=== PATIENT | male | born 1980 | race Hispanic/Latino ===

== ENCOUNTER 2018-04-08 12:29 | Observation (INO) | payer BC, OTHER ==
[2018-04-08 13:30] LABS: Absolute Lymphocytes (CBC) 2.1 K/uL (0.7-4.9); Absolute Monocytes 0.4 K/uL (0.1-1.3); Absolute Neutrophil 3.7 K/uL (1.8-8.0); Basophils % 0.5 % (0-1.3); Eosinophils % 1.2 % (0-4.4); Hematocrit 46.4 % (39.6-49.0); MPV 7.8 fL (7.6-11.3); Monocytes % 7.1 % (3.3-12.3); RBC Red Blood Cell Count 5.22 M/uL (4.33-5.43)
--- NOTE | 2018-04-08 13:54 | RAD REPORT ---
EXAM DESCRIPTION: RAD - Chest Single View - 04/08/2018 1:48 pm CLINICAL HISTORY: CHEST PAIN Chest pain. COMPARISON: THORAX WO CONTRAST dated 06/15/2010 FINDINGS: Portable technique limits examination quality. The lungs are grossly clear. The heart is normal in size. No displaced fractures. IMPRESSION: No acute intrathoracic process suspected.
[2018-04-08 14:09] LABS: ALT/SGPT 29 U/L (12-78); AST/SGOT 15 U/L (15-37); Albumin 3.8 g/dL (3.4-5.0); Alkaline Phosphatase 82 U/L (45-117); BUN Blood Urea Nitrogen 14 mg/dL (7-18); Bicarbonate 28 mmol/L (21-32); Bilirubin Direct < 0.1 mg/dL (0-0.2); Bilirubin Total 0.4 mg/dL (0.2-1.0); Glucose Level 125 mg/dL (74-106); NT PRO-BNP 52 pg/mL (<125); Potassium 3.6 mmol/L (3.5-5.1); Sodium Level 139 mmol/L (136-145); Troponin (Emerg Dept Use Only) < 0.02 ng/mL (0.0-0.045)
--- NOTE | 2018-04-08 14:35 | ER ---
Nurse's Notes [facility] Name: Hardy Venegas Age: 37 yrs Sex: Male : 1980 Arrival Date: 04/08/2018 Time: 12:35 Bed 6 Private MD: Diagnosis: Chest pain, unspecified Presentation: 04/08 12:43 Presenting complaint: Patient states: Sharp left sided chest pain x 4 days. Pain is hb worse with movement. Denies SOB/nausea. Transition of care: patient was not received from another setting of care. Onset of symptoms was April 05, 2018. Risk Assessment: Do you want to hurt yourself or someone else? Patient reports no desire to harm self or others. Initial Sepsis Screen: Does the patient meet any 2 criteria? No. Patient's initial sepsis screen is negative. Does the patient have a suspected source of infection? No. Patient's initial sepsis screen is negative. Care prior to arrival: None. 12:43 Method Of Arrival: Ambulatory hb 12:43 Acuity: JEREMÍAS 3 hb Historical: - Allergies: 12:45 No Known Allergies; hb - Home Meds: 12:45 None [Active]; hb - PMHx: 12:45 None; hb - PSHx: 12:45 None; hb - Immunization history:: Adult Immunizations up to date. - Social history:: Smoking status: Patient uses tobacco products, smokes one-half pack cigarettes per day. - Ebola Screening: : No symptoms or risks identified at this time. - Family history:: not pertinent. - Hospitalizations: : No recent hospitalization is reported. Screenin:00 Abuse screen: Denies threats or abuse. Nutritional screening: No deficits noted. aa5 Tuberculosis screening: No symptoms or risk factors identified. Fall Risk None identified. Assessment: 13:00 General: Appears comfortable, Behavior is calm, cooperative. Pain: Complains of pain in aa5 anterior aspect of left upper chest and left breast Pain does not radiate. Pain currently is 5 out of 10 on a pain scale. Quality of pain is described as sharp, Pain began 4 days ago Is continuous. Neuro: Level of Consciousness is awake, alert, obeys commands, Oriented to person, place, time, situation. Cardiovascular: Heart tones S1 S2 present Rhythm is regular. Respiratory: Airway is patent Respiratory effort is even, unlabored, Respiratory pattern is regular, symmetrical, Breath sounds are clear bilaterally. GI: No signs and/or symptoms were reported involving the gastrointestinal system. : No signs and/or symptoms were reported regarding the genitourinary system. EENT: No signs and/or symptoms were reported regarding the EENT system. Derm: Skin is pink, warm \T\ dry. Musculoskeletal: Range of motion: intact in all extremities. 13:20 Reassessment: Patient and/or family updated on plan of care and expected duration. Pain aa5 level reassessed. Patient is alert, oriented x 3, equal unlabored respirations, skin warm/dry/pink. Pt notified of wait time for results. . 15:00 Reassessment: Patient is alert, oriented x 3, equal unlabored respirations, skin aa5 warm/dry/pink. Pt sitting up in bed. Awaiting room assignment . 16:50 Reassessment: Patient is alert, oriented x 3, equal unlabored respirations, skin aa5 warm/dry/pink. Vital Signs: 12:44 BP 152 / 88; Pulse 89; Resp 18; Temp 98.2; Pulse Ox 100% on R/A; Pain 5/10; hb 15:20 BP 123 / 88; Pulse 69; Resp 16 S; Temp 98.0(TE); Pulse Ox 97% on R/A; Pain 3/10; aa5 ED Course: 12:35 Patient arrived in ED. mr 12:44 Triage completed. hb 12:44 Arm band placed on. hb 12:45 EKG completed in triage. Results shown to MD. hb 12:47 Orlin Cruz MD is Attending Physician. rn 12:59 Arabella Burton, VALERIE is Primary Nurse. aa5 13:00 Patient has correct armband on for positive identification. Placed in gown. Bed in low aa5 position. Call light in reach. Side rails up X2. 13:00 assistant unit forester on. Pulse ox on. NIBP on. aa5 13:13 Missed attempt(s): 20 gauge in right upper arm. Bleeding controlled, band aid applied, aa5 catheter tip intact. 13:15 Initial lab(s) drawn, by me, sent to lab. Inserted saline lock: 20 gauge in left aa5 antecubital area, using aseptic technique. Blood collected. 13:32 No provider procedures requiring assistance completed. Patient maintains SpO2 aa5 saturation greater than 95% on room air. 13:38 X-ray completed. Portable x-ray completed in exam room. Patient tolerated procedure sw well. 13:48 XRAY Chest (1 view) In Process Unspecified. EDMS 14:34 Hardeep Tirado MD is Hospitalizing Provider. rn 16:50 Patient admitted, IV remains in place. aa5 Administered Medications: No medications were administered Outcome: 14:34 Decision to Hospitalize by Provider. rn 16:50 Admitted to Tele accompanied by tech, via wheelchair, with chart, Report called to aa5 VALERIE Hoyos 16:50 Condition: stable 16:50 Instructed on the need for admit, Demonstrated understanding of instructions. 17:04 Patient left the ED. aa5 Signatures: Dispatcher [employer] EDMN Juan Joleen CruzOrlin MD MD rn Calderon, Audri, RN RN aa5 Dhara Powell Heather, RN RN Corrections: (The following items were deleted from the chart) 13:35 13:00 Pain: Complains of pain in anterior aspect of left upper chest and left breast aa5 Pain does not radiate. Pain currently is 5 out of 10 on a pain scale. Quality of pain is described as sharp, Pain began Is continuous, aa5 17:34 16:20 BP 123 / 88; Pulse 69bpm; Resp 16bpm; Spontaneous; Pulse Ox 97% RA; Temp 98.0F aa5 Temporal; Pain 3/10; aa5
--- NOTE | 2018-04-08 14:35 | EDPHYS ---
Physician Documentation [facility] Name: Hardy Venegas Age: 37 yrs Sex: Male : 1980 Arrival Date: 04/08/2018 Time: 12:35 Bed 6 Private MD: ED Physician Orlin Cruz HPI: 04/08 14:31 This 37 yrs old Male presents to ER via Ambulatory with complaints of Chest rn Pain. 14:31 The patient or guardian reports chest pain that is located primarily in the anterior rn chest wall, left. The pain does not radiate. Associated signs and symptoms: The patient has no apparent associated signs or symptoms, Pertinent negatives: shortness of breath, syncope, vomiting. The chest pain is described as a heaviness, sharp. Duration: The patient or guardian reports multiple episodes, that are intermittent. Modifying factors: The symptoms are alleviated by nothing. the symptoms are aggravated by nothing. Severity of pain: At its worst the pain was mild in the emergency department the pain is unchanged. The patient has not experienced similar symptoms in the past. The patient has not recently seen a physician. Historical: - Allergies: 12:45 No Known Allergies; hb - Home Meds: 12:45 None [Active]; hb - PMHx: 12:45 None; hb - PSHx: 12:45 None; hb - Immunization history:: Adult Immunizations up to date. - Social history:: Smoking status: Patient uses tobacco products, smokes one-half pack cigarettes per day. - Ebola Screening: : No symptoms or risks identified at this time. - Family history:: not pertinent. - Hospitalizations: : No recent hospitalization is reported. ROS: 14:31 Constitutional: Negative for fever, chills, and weight loss, Eyes: Negative for injury, rn pain, redness, and discharge, Neck: Negative for injury, pain, and swelling, Cardiovascular: Negative for palpitations, and edema, Respiratory: Negative for shortness of breath, cough, wheezing, and pleuritic chest pain, Abdomen/GI: Negative for abdominal pain, nausea, vomiting, diarrhea, and constipation, MS/Extremity: Negative for injury and deformity, Skin: Negative for injury, rash, and discoloration, Neuro: Negative for headache, weakness, numbness, tingling, and seizure. Exam: 14:31 Constitutional: This is a well developed, well nourished patient who is awake, alert, rn and in no acute distress. Head/Face: Normocephalic, atraumatic. Eyes: Pupils equal round and reactive to light, extra-ocular motions intact. Lids and lashes normal. Conjunctiva and sclera are non-icteric and not injected. Cornea within normal limits. Periorbital areas with no swelling, redness, or edema. Cardiovascular: Regular rate and rhythm. No pulse deficits. Respiratory: Lungs have equal breath sounds bilaterally, clear to auscultation. No increased work of breathing, no retractions or nasal flaring. Abdomen/GI: soft, non-tender Skin: Warm, dry with normal turgor. Normal color with no rashes, no lesions, and no evidence of cellulitis. MS/ Extremity: Pulses equal, no cyanosis. Neurovascular intact. Full, normal range of motion. Equal circumference. Neuro: Awake and alert, GCS 15, oriented to person, place, time, and situation. Cranial nerves II-XII grossly intact. Motor strength 5/5 in all extremities. Sensory grossly intact. Cerebellar exam normal. Normal gait. 14:31 ECG was reviewed by the Attending Physician. rn Vital Signs: 12:44 BP 152 / 88; Pulse 89; Resp 18; Temp 98.2; Pulse Ox 100% on R/A; Pain 5/10; hb 15:20 BP 123 / 88; Pulse 69; Resp 16 S; Temp 98.0(TE); Pulse Ox 97% on R/A; Pain 3/10; aa5 MDM: 12:47 Patient medically screened. rn 14:31 Differential diagnosis: acute myocardial infarction, acute pericarditis, coronary rn artery disease chest wall pain, costochondritis, esophagitis, gastritis, gastroesophageal reflux disease (GERD), pleurisy, pneumothorax, stable angina. Data reviewed: vital signs, nurses notes, lab test result(s), EKG, radiologic studies, plain films, and as a result, I will admit patient. Counseling: I had a detailed discussion with the patient and/or guardian regarding: the historical points, exam findings, and any diagnostic results supporting the discharge/admit diagnosis, lab results, radiology results, the need for further work-up and treatment in the hospital. Response to treatment: the patient's symptoms have mildly improved after treatment, and as a result, I will admit patient. Admission orders: after a detailed discussion of the patient's condition and case, the admit orders are written by me. ED course: Pt admitted to Dr. Tirado given t wave inversions inferolateral leads, trop neg, sleeping.. 04/08 12:53 Order name: Basic Metabolic Panel; Complete Time: 14:11 rn 04/08 12:53 Order name: CBC with Diff; Complete Time: 14:05 rn 04/08 12:53 Order name: LFT's; Complete Time: 14: rn 04/08 12:53 Order name: NT PRO-BNP; Complete Time: 14: rn 04/08 12:53 Order name: Troponin (emerg Dept Use Only); Complete Time: 14: rn 04/08 12:53 Order name: D-Dimer; Complete Time: 14:05 rn 04/08 12:53 Order name: XRAY Chest (1 view); Complete Time: 14:06 rn 04/08 12:53 Order name: EKG; Complete Time: 12:54 rn 04/08 12:53 Order name: Cardiac monitoring; Complete Time: 13:19 rn 04/08 12:53 Order name: EKG - Nurse/Tech; Complete Time: 13:19 rn 04/08 12:53 Order name: IV Saline Lock; Complete Time: 13:19 rn 04/08 12:53 Order name: Labs collected and sent; Complete Time: 13:19 rn 04/08 12:53 Order name: O2 Per Protocol; Complete Time: 13:19 rn 04/08 12:53 Order name: O2 Sat Monitoring; Complete Time: 13:19 rn 04/08 13:31 Order name: Labs - recollect needed; Complete Time: 13:40 eb EC:31 Rate is 84 beats/min. Rhythm is regular. QRS [place] is Normal. SD interval is normal. QRS rn interval is normal. QT interval is normal. No Q waves. T waves are Inverted. No ST changes noted. Clinical impression: NSR w/ Non-specific ST/T Changes. Interpreted by me. Administered Medications: No medications were administered Disposition: 04/08/18 14:34 Hospitalization ordered by Hardeep Tirado for Observation. Preliminary diagnosis is Chest pain, unspecified. - Bed requested for Telemetry/MedSurg (observation). - Status is Observation. aa5 - Condition is Stable. - Problem is new. - Symptoms have improved. UTI on Admission? No Signatures: Dispatcher [employer] EDMS Orlin Cruz MD MD rn Calderon, Audri RN RN aa5 Heather Hawkins RN RN Antionette Marie Corrections: (The following items were deleted from the chart) 15:28 14:34 Hospitalization Ordered by Hardeep Tirado MD for Observation. Preliminary diagnosis eb is Chest pain, unspecified. Bed requested for Telemetry/MedSurg (observation). Status is Observation. Condition is Stable. Problem is new. Symptoms have improved. UTI on Admission? No. rn 17:04 15:28 04/08/2018 14:34 Hospitalization Ordered by Hardeep Tirado MD for Observation. aa5 Preliminary diagnosis is Chest pain, unspecified. Bed requested for Telemetry/MedSurg (observation). Status is Observation. Condition is Stable. Problem is new. Symptoms have improved. UTI on Admission? No. eb
--- NOTE | 2018-04-08 16:53 | P.HP ---
Certification for Inpatient Patient admitted to: Observation With expected LOS: <2 Midnights Practitioner: I am a practitioner with admitting privileges, knowledge of patient current condition, hospital course, and medical plan of care. Services: Services provided to patient in accordance with Admission requirements found in Title 42 Section 412.3 of the Code of Federal Regulations Patient History Date of Service: 04/08/18 Primary Care Provider: None Reason for admission: Chest pain History of Present Illness: This is a 37-year-old male with no past medical history, current smoker admitted for chest pain. Patient endorses a left-sided sharp chest pain for the past 3-4 days that has been constant. It is worse with neck movement. Denies any alleviating factors. Denies any radiation, nausea, vomiting, fevers , chills, shortness of breath, vision changes, speech changes, GI, or complaints. He denies any past medical history, denies taking any medications at home, denies any surgical history. He is a current smoker. He smokes about half pack per day for the past 20 years. He is also a former drug user, denies any drug usage for 20 years. He also denies any significant family history. In the ER, EKG with inferior lateral T-wave inversions, troponins negative x1. Creatinine elevated at 1.37. Other lab work unremarkable. At the time of my exam, patient was alert oriented x3, hemodynamically stable and in no acute distress. Allergies No Known Allergies Allergy (Unverified 04/08/18 16:47) Home Medications: NK [No Home Meds] 04/08/18 - Past Medical/Surgical History Has patient received pneumonia vaccine in the past: No Diabetic: No Past Medical History: Patient denies medical history Past Surgical History: Patient denies surgical history - Family History Family History: Reviewed- Non-Contributory - Family History Mother -: Cancer Notes: Ovarian Review of Systems 10-point ROS is otherwise unremarkable Physical Examination - Physical Exam General: Alert, In no apparent distress, Oriented x3 HEENT: Atraumatic, PERRLA, Mucous membr. moist/pink, EOMI, Sclerae nonicteric Neck: Supple, 2+ carotid pulse no bruit, No LAD, Without JVD or thyroid abnormality Respiratory: Clear to auscultation bilaterally, Normal air movement Cardiovascular: Regular rate/rhythm, Normal S1 S2 Gastrointestinal: Normal bowel sounds, No tenderness Musculoskeletal: No tenderness Integumentary: No rashes Neurological: Normal gait, Normal speech, Normal strength at 5/5 x4 extr, Normal tone, Normal affect Lymphatics: No axilla or inguinal lymphadenopathy - Studies Laboratory Data (last 24 hrs) 04/08/18 13:39: Sodium 139, Potassium 3.6, BUN 14, Creatinine 1.37 H, Glucose 125 H, Total Bilirubin 0.4, AST 15, ALT 29, Alkaline Phosphatase 82 04/08/18 13:17: WBC 6.3, Hgb 15.6, Hct 46.4, Plt Count 229 Assessment and Plan - Problems (Diagnosis) (1) Chest pain Current Visit: Yes Status: Acute Qualifiers: Chest pain type: unspecified Qualified Code(s): R07.9 - Chest pain, unspecified (2) Acute kidney injury Current Visit: Yes Status: Acute - Plan This is a 37-year-old male with: Chest pain Start aspirin and Plavix. Serial troponins Will get an echo, pending. Lipid panel ordered microsoft bi consultant troponins elevated or chest pain worsens. Acute kidney injury. Will continue normal saline at 100 cc/hour. Monitor via a.m. labs. Former drug user Urinary drug screen pending Patient does deny any recent usage of any drugs. Current tobacco user, cigarette smoker. Counseling on smoking cessation given DVT prophylaxis: Lovenox GI prophylaxis: None Diet: Heart healthy, NPO after midnight Disposition: Pending serial troponins and clinical improvement. - Advance Directives Does patient have a Living Will: No Does patient have a Durable POA for Healthcare: No
--- NOTE | 2018-04-08 16:57 | EKG ---
Test Date: 2018-04-08 Test Time: 12:45:40 Wood Heel Flap Trimmer: YUKI MEASUREMENT RESULTS: Intervals: Rate: 84 NE: 122 QRSD: 92 QT: 362 QTc: 427 Floyd: P: 31 NE: 122 QRS: 58 T: -45 INTERPRETIVE STATEMENTS: Normal sinus rhythm ST & T wave abnormality, consider inferolateral ischemia Abnormal ECG No previous ECG available for comparison Electronically Signed On 04-08-18 16:56:26 MASK DESIGNER by Johnie Lizarraga
[2018-04-08] MEDS ORDERED: ONDANSETRON 4 MG/2 ML VIAL IV PRN (17:04)
[2018-04-08] MEDS ORDERED: MORPHINE 2 MG/ML SYR IV PRN (17:04)
[2018-04-08] MEDS ORDERED: NITROGLYCERIN 0.4 MG/TAB SL PRN (17:04)
[2018-04-08] MEDS: NA CHLORIDE 0.9% 1,000 ML IV SCH (17:35)
[2018-04-08] MEDS ORDERED: POTASSIUM CL SA 10 MEQ TAB PO ONE (18:00)
[2018-04-08 18:41] LABS: Barbiturates NEGATIVE (NEGATIVE); Benzodiazepines NEGATIVE (NEGATIVE); Cocaine NEGATIVE (NEGATIVE); METHAMPHETAM NEGATIVE (NEGATIVE); Methadone NEGATIVE (NEGATIVE); Opiates NEGATIVE (NEGATIVE); Phencyclidine NEGATIVE (NEGATIVE); THC Cannibis NEGATIVE (NEGATIVE)
[2018-04-08] MEDS ORDERED: HYDROCODONE/APAP 10/325 TAB PO PRN (22:54)
[2018-04-09] MEDS: NA CHLORIDE 0.9% 1,000 ML IV SCH (03:04)
[2018-04-09 04:38] LABS: Absolute Lymphocytes (CBC) 3.6 K/uL (0.7-4.9); Absolute Monocytes 0.6 K/uL (0.1-1.3); Absolute Neutrophil 2.4 K/uL (1.8-8.0); Basophils % 0.3 % (0-1.3); Eosinophils % 2.8 % (0-4.4); Hematocrit 43.3 % (39.6-49.0); Lymphocytes % 52.5 % (15.3-44.8); MPV 7.7 fL (7.6-11.3); Monocytes % 8.8 % (3.3-12.3); RBC Red Blood Cell Count 4.79 M/uL (4.33-5.43)
[2018-04-09 04:52] LABS: ALT/SGPT 23 U/L (12-78); AST/SGOT 12 U/L (15-37); Albumin 3.4 g/dL (3.4-5.0); Alkaline Phosphatase 73 U/L (45-117); BUN Blood Urea Nitrogen 15 mg/dL (7-18); Bicarbonate 29 mmol/L (21-32); Bilirubin Total 0.4 mg/dL (0.2-1.0); Glucose Level 89 mg/dL (74-106); HDL Cholesterol 49 mg/dL (40-60); LDL Cholesterol, Calculated 88 (<130); Magnesium 2.1 mg/dL (1.8-2.4); Phosphorus 3.6 mg/dL (2.5-4.9); Potassium 4.2 mmol/L (3.5-5.1); Protein, Total 6.2 g/dL (6.4-8.2); Sodium Level 143 mmol/L (136-145); Troponin I < 0.02 ng/mL (0.0-0.045)
[2018-04-09] MEDS ORDERED: ASPIRIN EC 81 MG TAB PO SCH (09:00)
[2018-04-09] MEDS ORDERED: CLOPIDOGREL 75 MG TABLET PO SCH (09:00)
--- NOTE | 2018-04-09 11:15 | ECHO ---
HEIGHT: 5 ft 6 in WEIGHT: 180 lb 0 oz DATE OF STUDY: 04/09/[address]: Hardeep Tirado MD 2-DIMENSIONAL: YES M.MODE: YES DOPPLER: YES COLOR FLOW: YES TDS: NO PORTABLE: NO DEFINITY: NO BUBBLE STUDY: NO DIAGNOSIS: CHEST PAIN CARDIAC HISTORY: CATHERIZATION: SURGERY: PROSTHETIC VALVE: PACEMAKER: MEASUREMENTS (cm) DIASTOLIC (NORMALS) SYSTOLIC (NORMALS) IVSd 1.1 (0.6-1.2) LA Diam 3.7 (1.9-4.0) LVEF 60% LVIDd 4.0 (3.5-5.7) LVIDs 2.8 (2.0-3.5) %FS 31% LVPWd 1.1 (0.6-1.2) Ao Diam 2.0 (2.0-3.7) 2 DIMENSIONAL ASSESSMENT: RIGHT ATRIUM: NORMAL LEFT ATRIUM: NORMAL RIGHT VENTRICLE: NORMAL LEFT VENTRICLE: NORMAL TRICUSPID VALVE: NORMAL MITRAL VALVE: NORMAL PULMONIC VALVE: NORMAL AORTIC VALVE: NORMAL PERICARDIAL EFFUSION: NONE AORTIC ROOT: NORMAL LEFT VENTRICULAR WALL MOTION: NORMAL DOPPLER/COLOR FLOW: PHYSIOLOGIC TRICUPSID REGURGITATION. NORMAL RIGHT VENTRICULAR SYSTOLIC PRESSURE. COMMENTS: NORMAL 2D ECHOCARDIOGRAM WITH DOPPLER. TECHNOLOGIST: Naya SEGURA
--- NOTE | 2018-04-09 12:12 | P.SSS ---
Patient History Date of Service: 04/09/18 Primary Care Provider: None Reason for admission: Chest pain History of Present Illness: This is a 37-year-old male with no past medical history, current smoker admitted for chest pain. Patient endorses a left-sided sharp chest pain for the past 3-4 days that has been constant. It is worse with neck movement. Denies any alleviating factors. Denies any radiation, nausea, vomiting, fevers , chills, shortness of breath, vision changes, speech changes, GI, or complaints. He denies any past medical history, denies taking any medications at home, denies any surgical history. He is a current smoker. He smokes about half pack per day for the past 20 years. He is also a former drug user, denies any drug usage for 20 years. He also denies any significant family history. In the ER, EKG with inferior lateral T-wave inversions, troponins negative x1. Creatinine elevated at 1.37. Other lab work unremarkable. At the time of my exam, patient was alert oriented x3, hemodynamically stable and in no acute distress. Allergies No Known Allergies Allergy (Unverified 04/08/18 16:47) Home Medications: NK [No Home Meds] 04/08/18 - Past Medical/Surgical History Has patient received pneumonia vaccine in the past: No Diabetic: No Past Medical History: Patient denies medical history - Family History Family History: Reviewed- Non-Contributory - Family History Mother -: Cancer Notes: Ovarian - Social History Smoking Status: Current every day smoker Alcohol use: Yes CD- Drugs: No Caffeine use: Yes Place of Residence: Home Review of Systems 10-point ROS is otherwise unremarkable Physical Examination - Vital Signs Temperature: 97 F Blood Pressure: 109/66 Pulse: 60 Respirations: 18 Pulse Ox (%): 97 - Physical Exam General: Alert, In no apparent distress, Oriented x3 HEENT: Atraumatic, PERRLA, Mucous membr. moist/pink, EOMI, Sclerae nonicteric Neck: Supple, 2+ carotid pulse no bruit, No LAD, Without JVD or thyroid abnormality Respiratory: Clear to auscultation bilaterally, Normal air movement Cardiovascular: Regular rate/rhythm, Normal S1 S2 Gastrointestinal: Normal bowel sounds, No tenderness Musculoskeletal: No tenderness Integumentary: No rashes Neurological: Normal gait, Normal speech, Normal strength at 5/5 x4 extr, Normal tone, Normal affect Lymphatics: No axilla or inguinal lymphadenopathy - Studies Laboratory Data (last 24 hrs) 04/08/18 13:39: Sodium 139, Potassium 3.6, BUN 14, Creatinine 1.37 H, Glucose 125 H, Total Bilirubin 0.4, AST 15, ALT 29, Alkaline Phosphatase 82 04/08/18 13:17: WBC 6.3, Hgb 15.6, Hct 46.4, Plt Count 229 - Diagnosis (Problem(s)) (1) Chest pain Onset Date: 04/09/18 Current Visit: Yes Status: Resolved Qualifiers: Chest pain type: unspecified Qualified Code(s): R07.9 - Chest pain, unspecified (2) Acute kidney injury Onset Date: 04/09/18 Current Visit: Yes Status: Resolved (3) Current tobacco use Current Visit: Yes Status: Chronic Treatment Summary: Patient was admitted for chest pain. Troponins remained negative x3, he remained hemodynamically stable. His liver panel with slightly elevated triglycerides, otherwise normal. An echo was performed, which is normal. Patient's chest pain also resolved. His MEAGHAN improved with IV fluids. He was then discharged home in a stable manner. He was counseled on smoking cessation and lifestyle modifications, including diet and exercise. He was also recommended that he follows up with the primary care physician in 1 week. - Disposition Discharge Date: 04/09/18 Disposition: ROUTINE DISCHARGE Condition: GOOD Patient Discharge Instructions: Please follow up with the primary care physician in 1 week. Please return to the ER for worsening symptoms Diet: AHA Activity: Ad leana Time Spent Managing Pts Care (In Minutes): 55
== END 2018-04-09 13:19 | disposition home or self-care (01) ==
LOC: ER 12:29 → ERHOLD 14:50 → 4TH 16:33
PROVIDERS: ADMIT Family Medicine; ATTEND Family Medicine
DX: R07.9 Chest pain, unspecified (principal); N17.9 Acute kidney failure, unspecified; F19.11 Other psychoactive substance abuse, in remission; F17.210 Nicotine dependence, cigarettes, uncomplicated
CPT/HCPCS: 36415; 71045; 80048; 80053; 80061; 80076; 80307; 83735; 83880; 84100; 84484; 85025; 85379; 93005; 93306; 94760; 99285; G0378; J2270; J7030

== ENCOUNTER 2019-07-11 17:58 | Emergency (ER) | payer BC, OTHER ==
--- OUTSIDE RECORDS SUMMARY | 2019-07-11 18:00 | XMS REPORT ---
:1980 Author Organization [employer] Care Team Providers Name Role Phone Luis Kearns Provider Role Unavailable Allergies, Adverse Reactions, Alerts Substance Reaction Event Type N.K.D.A. Info Not Available Non Drug Allergy Problems Problem Type Condition Code Onset Dates Condition Statu s Assessment Alcohol use disorder, mild, abuse F10.10 Active Problem Gastroesophageal reflux disease K21.9 Active without esophagitis Problem Alcohol use disorder, mild, abuse F10.10 Active Problem Tobacco abuse counseling Z71.6 Act amirah Assessment Tobacco abuse counseling Z71.6 Act amirah Assessment Encounter for immunization Z23 A ctive Assessment Gastroesophageal reflux disease K21.9 Active without esophagitis Medications Medication Code System Code Instructions Start End Date Status Dos age Date Prilosec OTC [facility] [id number] 20 MG Orally Apr 10, Active 1 tablet Once a day 2019 Results No Known Results Immunizations Vaccine Administration Date TDAP > 7 Years-Adacel Apr 10, 2018 Summary Purpose [employer] Submission
--- OUTSIDE RECORDS SUMMARY | 2019-07-11 18:01 | XMS REPORT ---
:1980 Author Organization [facility] Address [address] [place] [address] Care Team Providers Name Role Phone Unavailable Unavailable Unavailable Problems Condition Condition Condition Status Onset Resolution Last Treating Co mments Source Name Details Category Date Date Treatment Clinician Date Alcohol Alcohol Problem Active [facility] disorder, disorder, Олег damien mild, mild, l abuse abuse [facility] Gastroesop Gastroesop Diagnosis Active [facility] hageal hageal [facility] - reflux reflux Memoria disease disease l without without [facility]ophag[facility] Tobacco Tobacco [facility] counseling counseling Me moria l [facility] Encounter Encounter Diagnosis Active [facility] for [facility] - immunizati immunizati Me moria on on l [facility] Allergies, Adverse Reactions, Alerts This patient has no known allergies or adverse reactions. Medications Ordered Filled Start Stop Current Ordering Indication Dosage Frequency Signature Comments Components Source Medication Medication Date Date Medication? Clinician (SIG) Name Name Prilosec Prilosec 2019-0 Yes Luis [address] [facility] OTC 2-14 [facility] - 00:00: Memoria 00 l [facility] Immunizations Ordered Filled Immunization Date Status Comments Sourc e Immunization Name Name TDAP > 7 TDAP > 7 2018-04-[address] [facility] - Years-Adacel Years-Adacel 00:00:00 [facility] Procedures This patient has no known procedures. Encounters Start End Encounter Admission Attending Care Care Encounter Source Date/Time Date/Time Type Type Clinicians Facility Department ID 2018-04-10 2018-04-10 [facility] [id number] [facility] [address] 10:30:00 10:30:00 [facility] - [facility] Medicine [facility] Results This patient has no known results.
--- NOTE | 2019-07-11 19:43 | ER ---
Nurse's Notes [facility] Name: Hardy Venegas Age: 38 yrs Sex: Male : 1980 Arrival Date: 07/11/2019 Time: 18:02 Bed Waiting Private MD: Diagnosis: Presentation: 07/10 18:20 Chief complaint: Patient states: Cyst of abscess on roof of mouth x 3-4 days. ca1 Coronavirus screen: Proceed with normal triage. Patient denies a cough. Patient denies shortness of breath or difficulty breathing. Patient denies measured and/or subjective temperature greater than 100.4F prior to today's visit. Patient denies travel on a cruise ship or to a country the [facility] currently lists as an affected area. Patient denies contact with known and/or suspected case of COVID-19. Ebola Screen: Patient negative for fever greater than or equal to 101.5 degrees Fahrenheit, and additional compatible Ebola Virus Disease symptoms Patient denies exposure to infectious person. Patient denies travel to an Ebola-affected area in the 21 days before illness onset. No symptoms or risks identified at this time. Initial Sepsis Screen: Does the patient meet any 2 criteria? No. Patient's initial sepsis screen is negative. Does the patient have a suspected source of infection? No. Patient's initial sepsis screen is negative. Risk Assessment: Do you want to hurt yourself or someone else? Patient reports no desire to harm self or others. Onset of symptoms was July 11, 2019. 18:20 Method Of Arrival: Ambulatory ca1 18:20 Acuity: JEREMÍAS 4 ca1 Historical: - Allergies: 18:21 No Known Allergies; ca1 - Home Meds: 18:21 omeprazole Oral [Active]; ca1 - PMHx: 18:21 Gastric Reflux; ca1 - PSHx: 18:21 None; ca1 - Immunization history:: Adult Immunizations up to date. - Social history:: Smoking status: Patient reports the use of cigarette tobacco products, smokes one-half pack cigarettes per day. Vital Signs: 18:20 BP 106 / 86; Pulse 81; Resp 16 S; Temp 97.2(TE); Pulse Ox 98% on R/A; Weight 79.38 kg ca1 (R); Height 5 ft. 7 in. (170.18 cm) (R); Pain 0/10; 18:20 Body Mass Index 27.41 (79.38 kg, 170.18 cm) ca1 ED Course: 18:02 Patient arrived in ED. as 18:21 Triage completed. ca1 18:21 Arm band placed on right wrist. ca1 19:37 Patient's name was called from ER lobby. No response. Unable to locate patient. Will tl2 disposition as left without being seen by a provider. Administered Medications: No medications were administered Outcome: 19:43 Patient left the ED. tl1 Signatures: Nella Acuna Tonya, RN RN tl1 Macrina Muller, RN RN tl2 Shirin Berumen RN RN ca1
[2019-07-11 19:51] VITALS: BP 106/86; TEMP 97.2; O2SAT 98
== END 2019-07-11 19:43 | disposition left against medical advice (07) ==
LOC: ER 17:58
DX: Z53.21 Procedure and treatment not carried out due to patient leaving prior to being seen by health care provider (principal)
CPT/HCPCS: 99281